=== PATIENT | female | born 1950 | race Caucasian/White ===

== ENCOUNTER 2017-09-10 17:23 | Emergency (ER) | payer MEDICARE, OTHER ==
[2017-09-10 18:29] LABS: BASOPHILS # (AUTO) 0.1 10^3/uL (0.0-0.1); BASOPHILS % (AUTO) 0.7 %; EOSINOPHILS # (AUTO) 0.2 10^3/uL (0.0-0.7); EOSINOPHILS % (AUTO) 2.7 %; HGB - HEMOGLOBIN 14.9 g/dL (12.0-16.0); LYMPHOCYTES # (AUTO) 1.6 10^3/uL (1.5-3.5); LYMPHOCYTES % (AUTO) 20.7 %; MEAN CORPUSCULAR HEMOGLOBIN 30.6 pg (27.0-31.0); MEAN CORPUSCULAR HGB CONC 34.2 g/dL (32.0-36.0); MEAN CORPUSCULAR VOLUME 89.6 fL (81.0-99.0); MEAN PLATELET VOLUME 8.8 fL (7.9-10.8); MONOCYTES # (AUTO) 0.5 10^3/uL (0.0-1.0); MONOCYTES % (AUTO) 6.2 %; NEUTROPHILS # (AUTO) 5.3 10^3/uL (1.5-6.6); NEUTROPHILS % (AUTO) 69.7 %; PLT - PLATELET COUNT 214 10^3/uL (130-450); RED BLOOD COUNT 4.86 10^6/uL (4.20-5.40); WHITE BLOOD COUNT 7.6 x10^3/uL (4.8-10.8)
[2017-09-10 18:37] LABS: ALBUMIN 4.7 g/dL (3.2-5.5); ALBUMIN/GLOBULIN RATIO 1.7 (1.0-2.2); BILIRUBIN,TOTAL 0.5 mg/dL (0.2-1.0); CALCIUM 9.9 mg/dL (8.5-10.3); CREATININE 0.9 mg/dL (0.4-1.0); TOTAL PROTEIN 7.5 g/dL (6.7-8.2)
[2017-09-10] MEDS ORDERED: ASPIRIN 325 MG TABLET PO STA (19:00)
--- NOTE | 2017-09-10 19:02 | ED Physician Documentation ---
PD HPI CHEST PAIN - Stated complaint Stated Complaint: CP - Chief complaint Chief Complaint: Cardiac - History obtained from History obtained from: Patient - History of Present Illness Timing - onset: Other (67-year-old woman has been having intermittent nonexertional left-sided chest pressure lasting minutes to hours at a time for the last 3 weeks, generally getting worse and associated with blood pressures that have been high at home take despite taking as needed propranolol. She has no known history of coronary disease, had remotely negative stress testing per her. When we were discussing her EKG she said I "have a blip on there that worries everybody" but I do not have any prior EKGs to look at. She has been intermittently short of breath and fatigue but no nausea.) Review of Systems Ten Systems: 10 systems reviewed and negative Constitutional: reports: Reviewed and negative Throat: reports: Reviewed and negative Cardiac: reports: Chest pain / pressure, Palpitations, Pedal edema. denies: Calf pain Respiratory: reports: Dyspnea. denies: Cough PD PAST MEDICAL HISTORY - Past Medical History Past Medical History: Yes Cardiovascular: Hypertension, Arrhythmia, Other Respiratory: None Neuro: Head injury Endocrine/Autoimmune: None GI: None SCHOOL TREASURER: None : None HEENT: None Psych: None Musculoskeletal: Osteoarthritis, Fibromyalgia, Scoliosis Derm: None Other Past Medical History: Dyastolic syndrom - Past Surgical History Past Surgical History: Yes General: Appendectomy /SCHOOL TREASURER: Other - Present Medications Home Medications: Ambulatory Orders Medication Instructions Recorded Confirmed Acetaminophen with Codeine DAILY 09/10/17 [Tylenol with Codeine #3 Tablet] Amitriptyline [Elavil] 10 mg PO DAILY 09/10/17 09/10/17 Propranolol [Inderal] 10 mg PO DAILY 09/10/17 09/10/17 amLODIPine [Norvasc] 10 mg PO DAILY #30 tablet 09/10/17 - Allergies Allergies/Adverse Reactions: Allergies Allergy/AdvReac Type Severity Reaction Status Date / Time Sulfa (Sulfonamide Allergy Severe Emesis Verified 09/10/17 18:05 Antibiotics) iodine Allergy Intermediate Anaphylaxis Verified 09/10/17 18:07 Iodine and Iodide Containing Allergy Intermediate Anaphylaxis Verified 09/10/17 18:07 Produc Penicillins Allergy Intermediate Emesis Verified 09/10/17 18:07 - Social History Does the pt smoke?: No Smoking Status: Never smoker Does the pt drink ETOH?: No Does the pt have substance abuse?: No - Family History Family history: reports: Non contributory - Immunizations Immunizations are current?: No PD ED PE NORMAL - Vitals Vital signs reviewed: Yes - General General: Alert and oriented X 3, No acute distress - HEENT HEENT: PERRL, EOMI - Neck Neck: Supple, no meningeal sign, No bony TTP - Cardiac Cardiac: RRR, No murmur - Respiratory Respiratory: No respiratory distress, Clear bilaterally - Abdomen Abdomen: Normal bowel sounds, Soft, Non tender - Back Back: No CVA TTP, No spinal TTP - Derm Derm: Normal color, Warm and dry - Extremities Extremities: No edema, No calf tenderness / cord - Neuro Neuro: Alert and oriented X 3, Normal speech - Psych Psych: Normal mood, Normal affect Results - Vitals Vitals: Vital Signs - 24 hr 09/10/17 09/10/17 09/10/17 18:11 18:57 19:32 Heart Rate 66 67 68 Respiratory 18 18 18 Rate Blood Pressure 173/99 H 165/101 H 174/101 H O2 Saturation 96 96 97 Oxygen O2 Source Room air - EKG (time done) 1747 Rate: Rate (enter#) (64) Rhythm: NSR [place]: Normal Intervals: Normal DC QRS: Normal Ischemia: T wave inversion (Inferior and anterior) Compare to prior EKG: Old EKG unavailable Computer interpretation: Agree with computer - Labs Labs: Laboratory Tests 09/10/17 09/10/17 09/10/17 18:09 18:09 18:09 WBC 7.6 RBC 4.86 Hgb 14.9 Hct 43.6 MCV 89.6 MCH 30.6 MCHC 34.2 RDW 14.0 Plt Count 214 MPV 8.8 Neut # 5.3 Lymph # 1.6 [place] # 0.5 Eos # 0.2 Baso # 0.1 Absolute Nucleated RBC 0.00 Nucleated RBC % 0.0 Sodium 141 Potassium 3.9 Chloride 99 L Carbon Dioxide 30 Anion Gap 12.0 BUN 21 H Creatinine 0.9 Estimated GFR (MDRD) 63 L Glucose 95 Calcium 9.9 Total Bilirubin 0.5 AST 34 ALT 56 Alkaline Phosphatase 107 Troponin I < 0.04 Total Protein 7.5 Albumin 4.7 Globulin 2.8 Albumin/Globulin Ratio 1.7 Lipase 30 PD MEDICAL DECISION MAKING - ED course ED course: She has 3 weeks of intermittent chest pain which could be angina but it is somewhat atypical and nonexertional. Her EKG has some nonspecific changes which could be chronic per her description. I spoke with Dr. Moss, on-call for her vp talent management at the [facility] who recommended adding aspirin and Norvasc to her current regimen and to call the office for expedited follow-up. Departure - Departure Disposition: Home, Self Care Clinical Impression: Chest pain Qualifiers: Chest pain type: unspecified Qualified Code(s): R07.9 - Chest pain, unspecified Hypertension Qualifiers: Hypertension type: essential hypertension Qualified Code(s): I10 - Essential ( primary) hypertension Condition: Good Record reviewed to determine appropriate education?: Yes Instructions: ED Chest Pain Atypical Unkn Cause Prescriptions: amLODIPine [Norvasc] 10 mg PO DAILY #30 tablet Comments: Call Dr. Roland's office tomorrow to arrange for expedited follow-up, I spoke with 1 of his partners, Dr. Ajay campos. Let them know that you are having increasing chest pains, they may want to schedule you sooner than the current appointment on September 20 for evaluation expedited stress testing. Until then take a baby aspirin every day and add the new blood pressure medication to your usual medications. You can continue taking the propranolol.
[2017-09-10] MEDS ORDERED: amLODIPine 5 MG TABLET PO STA (19:24)
[2017-09-10 19:50] VITALS: BP 168/107
--- NOTE | 2017-09-10 20:15 | XRAY Report ---
EXAM: CHEST RADIOGRAPHY EXAM DATE: 09/10/2017 07:32 PM. CLINICAL HISTORY: Chest pain. COMPARISON: None. TECHNIQUE: 1 view. FINDINGS: Lungs/Pleura: No focal opacities evident. No pleural effusion. No pneumothorax. Mediastinum: Mild cardiomegaly. Other: None. IMPRESSION: 1. Mild cardiomegaly. 2. No acute intrathoracic plain film abnormality. [facility] Referring Provider Line: [phone] SITE ID: [id number]
== END 2017-09-10 20:10 | disposition home or self-care (01) ==
LOC: ED 17:23
DX: R07.89 Other chest pain (principal); R94.31 Abnormal electrocardiogram [ECG] [EKG]; I10 Essential (primary) hypertension
CPT/HCPCS: 36415; 71045; 80053; 83690; 84484; 85025; 93005; 99283; A9270

== ENCOUNTER 2020-06-10 15:00 | Outpatient (CLI) | payer MEDICARE, OTHER | END 2020-06-10 15:01 | disposition home or self-care (01) | LOC: LAB.S 15:00 | PROVIDERS: ATTEND Internal Medicine Cardiovascular Disease | DX: I10 Essential (primary) hypertension (principal) | CPT/HCPCS: 36415; 80048 ==

== ENCOUNTER 2023-06-23 17:32 | Outpatient (CLI) | payer MEDICARE, OTHER | END 2023-06-23 17:33 | disposition left against medical advice (07) | LOC: EMS 17:32 | DX: R06.02 Shortness of breath (principal); J02.9 Acute pharyngitis, unspecified; R50.9 Fever, unspecified ==